=== PATIENT | female | born 2000 | race Caucasian/White ===

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

== ENCOUNTER 2019-06-20 02:52 | Emergency (ER) | payer OTHER ==
[2019-06-20] MEDS ORDERED: Lactated Ringers 1,000 ML IV ONE (03:03)
[2019-06-20 03:20] VITALS: BP 116/56; PULSE 90
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
== END 2019-06-20 03:47 | disposition home or self-care (01) ==
LOC: VM.ED 02:52
DX: F10.129 Alcohol abuse with intoxication, unspecified (principal); Z91.09 Other allergy status, other than to drugs and biological substances
CPT/HCPCS: 96360; 99284; J7120

== ENCOUNTER 2019-09-10 04:44 | Emergency (ER) | payer OTHER ==
[2019-09-10] MEDS ORDERED: Morphine 2 MG/ML Syringe IM ONE (05:10)
[2019-09-10] MEDS ORDERED: Take Home: Cyclobenzaprine 10 MG Tab, 4 Tab Pack PO ONE (07:00)
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
== END 2019-09-10 07:16 | disposition home or self-care (01) ==
LOC: VM.ED 04:44
DX: S16.1XXA Strain of muscle, fascia and tendon at neck level, initial encounter (principal); S23.3XXA Sprain of ligaments of thoracic spine, initial encounter; Z91.09 Other allergy status, other than to drugs and biological substances; V58.6XXA Passenger in pick-up truck or van injured in noncollision transport accident in traffic accident, initial encounter; Y92.410 Unspecified street and highway as the place of occurrence of the external cause
CPT/HCPCS: 72125; 72128; 81025; 96372; 99284; A9270; J2270; J2360